=== PATIENT | female | born 1995 | race Caucasian/White ===

== ENCOUNTER 2024-02-08 18:28 | Emergency (ER) | payer BC ==
[2024-02-08] MEDS ORDERED: Succinylcholine 200 MG/10 ML MDV IV ONE (18:39)
[2024-02-08] MEDS ORDERED: Sodium Chloride 0.9% 10 ML Syringe FLUSH PRN (18:44)
[2024-02-08] MEDS ORDERED: Midazolam 5 MG/ML 10 ML MDV ONE (18:50)
[2024-02-08 19:06] LABS: BASOPHILS ABSOLUTE AUTO 0.1 K/mm3 (0.0-0.2); BASOPHILS PERCENT AUTO 0.3 % (0.0-1.0); EOSINOPHILS ABSOLUTE AUTO 0.1 K/mm3 (0.0-0.4); EOSINOPHILS PERCENT AUTO 0.8 % (0.0-6.0); HEMATOCRIT 42.7 % (37.0-47.0); IMMATURE GRAN ABSOLUTE AUTO 0.05 K/mm3 (0.00-0.05); IMMATURE GRAN PERCENT AUTO 0.3 % (0.0-0.4); LYMPHOCYTES ABSOLUTE AUTO 3.8 K/mm3 (1.0-4.8); LYMPHOCYTES PERCENT AUTO 23.9 % (24.0-44.0); MEAN CORPUSCULAR HEMOGLOBIN 26.8 pg (28.0-32.0); MEAN CORPUSCULAR HGB CONC 32.8 g/dl (32.0-36.0); MEAN CORPUSCULAR VOLUME 81.6 fl (83.0-99.0); MEAN PLATELET VOLUME 9.6 fl (9.4-12.3); MONOCYTES ABSOLUTE AUTO 1.1 K/mm3 (0.0-0.8); MONOCYTES PERCENT AUTO 6.7 % (0.0-8.0); NEUTROPHILS ABSOLUTE AUTO 10.7 K/mm3 (1.8-7.7); PLATELET COUNT,PLT 326 K/mm3 (150-400); RED BLOOD CELL COUNT 5.23 M/mm3 (4.10-5.30); WHITE BLOOD CELL COUNT,WBC 15.69 K/mm3 (3.9-11.3)
[2024-02-08 19:26] LABS: INR 1.02; PROTHROMBIN TIME 10.8 SECONDS (9.7-12.0)
[2024-02-08] MEDS: Lactated Ringers 1,000 ML IV SCH (19:31)
[2024-02-08] MEDS: fentaNYL 100 MCG/2 ML SDV IVPUSH ONE (19:36)
[2024-02-08] MEDS: propofoL 100 ML IV SCH (19:43)
[2024-02-08 19:50] LABS: A/G RATIO 0.9 (1-2); ALBUMIN 3.7 g/dl (3.4-5.0); ANION GAP 15.7 (5-15); BILIRUBIN TOTAL 0.5 mg/dL (0.2-1.0); BUN/CREATININE RATIO 15.6 (14-18); C-REACTIVE PROTEIN 1.03 mg/dL (<0.30); CALCIUM 8.7 mg/dL (8.5-10.1); CREATININE 0.9 mg/dL (0.55-1.02); EST CRCL DRUG DOSING (CG) 92.11 mL/min; MAGNESIUM 1.6 mg/dL (1.8-2.4); POTASSIUM,K 3.7 mEq/L (3.5-5.1); PROTEIN TOTAL,TP 7.7 g/dl (6.4-8.2)
[2024-02-08] MEDS: Lactated Ringers 1,000 ML IV ONE (19:56)
[2024-02-08 20:10] LABS: APPEARANCE,URINE CLEAR (Clear); BILIRUBIN,URINE NEGATIVE (Negative); COLOR,URINE YELLOW (Yellow); GLUCOSE,URINE NEGATIVE (Negative); KETONES,URINE NEGATIVE (Negative); LEUKOCYTE ESTERASE,URINE NEGATIVE (Negative); NITRITE,URINE NEGATIVE (Negative); OCCULT BLOOD,URINE 1+ (Negative); PH,URINE 5.5 (5.0-8.0); PROTEIN,URINE 2+ (Negative); UROBILINOGEN,URINE 0.2 (0.2-1.0)
[2024-02-08 20:17] LABS: BARBITURATE SCREEN,URINE NEGATIVE (CUTOFF=200); BENZODIAZEPINES SCREEN,URINE PRESUMPTIVE POSITIVE (CUTOFF=150); BUPRENORPHINE SCREEN,URINE NEGATIVE (CUTOFF=10); METHADONE SCREEN, URINE NEGATIVE (CUTOFF=200); METHAMPHETAMINES SCREEN, URINE NEGATIVE (CUTOFF=500); OXYCODONE SCREEN,URINE NEGATIVE (CUT0FF=100); THC SCREEN,URINE 20 NG/ML NEGATIVE (CUTOFF=50)
[2024-02-08 20:30] LABS: BACTERIA,URINE FEW /hpf (FEW); MUCUS,URINE MODERATE /hpf (FEW); SQUAMOUS EPITHELIAL CELLS,UR 0-5 /hpf (0-5); WBC,URINE 0-5 /hpf (0-5)
[2024-02-08 20:31] LABS: AMPHETAMINES SCREEN, URINE NEGATIVE (CUTOFF=500)
[2024-02-08] MEDS: Etomidate 2 MG/ML 20 ML SDV IVPUSH ONE (20:31)
[2024-02-08 20:32] LABS: BASE EXCESS ARTERIAL -4.3 (-2-2.0); BICARBONATE,ARTERIAL 18.5 meq/L (22.0-26.0); PCO2 ARTERIAL 28.5 mmHg (35.0-45.0)
[2024-02-08] MEDS: Succinylcholine 200 MG/10 ML MDV IVPUSH ONE (20:32)
[2024-02-08] MEDS: Midazolam 1 MG/ML 5 ML SDV IVPUSH ONE (20:32)
[2024-02-08] MEDS: Rocuronium 50 MG/5 ML Vial IVPUSH ONE (20:33)
== END 2024-02-08 22:04 ==
LOC: JD.ED 18:28
DX: R56.9 Unspecified convulsions (principal); J96.00 Acute respiratory failure, unspecified whether with hypoxia or hypercapnia; R51.9 Headache, unspecified; Z79.899 Other long term (current) drug therapy
CPT/HCPCS: 31500; 36415; 36600; 51702; 70450; 71045; 80053; 80143; 80179; 80306; 80307; 81001; 82803; 83605; 83690; 83735; 83880; 84484; 84703; 85025; 85610; 86140; 93005; 96365; 96366; 96367; 96375; 96376; 99285; J0330; J2250; J2704; J3010; J3490; J7120; 93010